=== PATIENT | female | born 1990 | race Caucasian/White ===

== ENCOUNTER → 2020-12-19 10:38 | Outpatient (CLI) | payer OTHER, SELFPAY ==
[2014-06-06 19:23] VITALS: BMI 19.8
[2020-12-19 12:26] LABS: Hematocrit 41.4 % (37-47); Hemoglobin 14.1 g/dL (12.0-15.0); Mean Corp Hgb Conc 34.1 g/dL (32-36); Mean Corpuscular Hgb 30.5 pg (27.0-32.0); Mean Corpuscular Volume 89.6 fL (81-99); Mean Platelet Vol. 10.6 fl (6.2-12.0); Platelet Count 242 K/mm3 (150-450); RBC Distribution Width CV 11.9 % (11.6-14.6); RBC Distribution Width SD 38.9 fl (35.1-43.9); Red Blood Count 4.62 M/mm3 (4.2-5.4); White Blood Count 6.2 K/mm3 (4.4-11.0)
[2020-12-19 12:59] LABS: Vitamin B12 338 pg/mL (211-911)
[2020-12-19 13:00] LABS: ALB/GLOB Ratio 1.3 RATIO (0.9-2.4); AST(SGOT) 17 U/L (15-37); Alanine Aminotransfer ALT/SGPT 21 U/L (13-56); Albumin, Serum 4.4 g/dL (3.2-5.0); Alkaline Phosphatase 61 U/L (45-117); Anion Gap 6 (5-15); BUN 8 mg/dL (7-18); BUN/Creat Ratio 9.5 RATIO (10-20); Calcium,Total 9.6 mg/dL (8.5-10.1); Chloride 104 mmol/L (98-107); Creatinine, Serum 0.85 mg/dL (0.55-1.02); EST Glomerular Filtration Rate 85 mL/min (>60); Est Glom Filt Rate - Afr Amer 103 mL/min (>60); Globulin 3.5 g/dL (2.2-4.2); Glucose 90 mg/dL (74-106); Potassium 4.3 mmol/L (3.5-5.1); Protein, Total 7.9 g/dL (6.4-8.2); Sodium Level 138 mmol/L (136-145)
== END ==
PROVIDERS: PCP Family Medicine; Referring Provider Podiatrist Foot & Ankle Surgery; Visit Provider Podiatrist Foot & Ankle Surgery
DX: G60.8 Other hereditary and idiopathic neuropathies (principal)
CPT/HCPCS: 36415; 80053; 82607; 85027

== ENCOUNTER 2021-11-12 17:00 | Outpatient (RCR) | payer OTHER, SELFPAY ==
--- NOTE | 2021-10-22 17:13 | HP.PTEVAL ---
Patient's Visit Information MARIE MCKEON is a 30 year old F referred to Physical Therapy by Dr. Anika Barron MD with a diagnosis of - Saccro. Date of Evaluation: 10/22/21 Physical Therapist: Jennifer Castro DPT - Visit Plan Frequency: 2x /Week Duration: 4 Weeks Plan: - hip pain- focus on core s/s. HEP Given IE: Cat/Camel, Happy Baby, Child's pose, Tailwag, TA contraction, bridge, hip add, hip abd - Subjective Patient reports that she is - and has pain in the tailbone and is radiating out to the hip. Started when she was moving but is now aching all day. She is 14 weeks - it started as soon as she got . This is her first baby. The pain is located on the right side. She has never had back issues before. Describes the pain as sharp and shooting and aches too. She has looked up some stretches online and she ices- so its gotten a little bit better- she does cat/cow, frog stretch, wagging her tail. Worst: 3/10 Agg: twisting while bending, bending, sitting and standing, rolling over in bed. Ease: ice, stretches. Best: 0/10. No pain that radiates down her leg and no N/T in the toes. 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 She finds herself wanting to sit more. No images or ultrasounds on her spine. The nurse does not feel that its from her - possibly from a dog pulling her when walking. She also has Hao disease. No complications during . Sleep: does wake her up- sleeps mostly on her back- she has a big pillow that she uses and it helps to keep her knees . She is more sedentary- she tries to walk but the weather has been crazy- no weight training or core exercises. PMHx: Hao Disease, Bipolar, Scoliosis Meds: Latuda - Objective Posture: Fh, RS can correct but does not maintain. Gait: no deviation noted. SLS: 30 sec without LOB good pelvic alignment- no sway. ROM: WFL in all planes no pain. Flex: HS: moderated, Gastroc: moderate, Quad: moderate. Strength: Core: fair minus, Hip: 4/5 IR/ER, Flexion, abduction and extension. 4+/5 adduction, Knee/Ankle: 5/5. Special Test: pelvic alignment: WFL, LLD: negative, Squish: negative, Prone Heel Squeeze: negative - Special Tests L/S Slump test left side: Negative L/S Slump test right side: Negative L/S Left Straight Leg Raise: Negative L/S Right Straight Leg Raise: Negative R Hip Scour: Negative R Hip HIRA - Intraarticular Pathology: Negative R Hip FADDIR - Labrum: Negative R Hip Trendelenberg - Glut Medius: Negative - Balance/Special Test Scores Oswestry Low Back Score: 4 - Goals Goal 1:: Patient will be I with HEP and progression Goal Time Frame: 4-6 Weeks Goal 2:: Patient will maintain proper posture t/o tx session to demo increased core s/s Goal Time Frame: 4-6 Weeks Goal 3:: Patient will report 80% improvement Goal Time Frame: 4-6 Weeks - Rehabilitation Potential Physical Therapy Diagnosis: Patient presents with hypomobility- she has decreased LE and core strength/stabilization, flex and muscular endurance leading to poor posture and increased pain with ADL's Rehabilitation Potential: Good - Anticipated Interventions Patient/Client Instruction: Educate patient on: Benefits of Fitness Program Therapeutic Exercise to Include: Strength training, Endurance training, Balance training, Coordination, Agility training, Body mechanics, Postural training, Flexibilty training, Gait and locomotor training, Neuromotor development, Dynamic Lumbar Stabilization, Scapular Strength/Stabilization For the Purpose of:: To improve muscle performance and motor function TENS: No Cryotherapy (ice pack, ice massage): Yes Thermo therapy (hot pack): No Ultrasound (thermal/non thermal): No Thank you for the opportunity to evaluate your patient. For Medicare and Medicare HMO plans, please review the plan of care and approve it. It will need to be FAXED BACK to us at [phone] for Medicare purposes. For Medicare only, by signing this I certify the plan of care. Please let me know if there are questions or concerns regarding this plan of care. Physician Signature: Date:
--- NOTE | 2021-11-12 17:27 | HP.PTDCSUM ---
It has been my pleasure to treat MARIE MCKEON referred by Dr. Anika Barron MD, with the diagnosis of - Saccro/Right Hip for a total of 6 visit(s). Discharge Date: Please see the following information for a summary of their discharge status. Subjective: Patient reports that occasionally she is having a little bit of discomfort- right hip- ice still helps. The pain only happens when she is really busy- if she is sitting or standing in one spot for long periods of time. % Improvement: 95 Objective/Function: Posture: good throughout Gait: no deviation noted. SLS: 30 sec without LOB good pelvic alignment- no sway. ROM: WFL in all planes no pain. Flex: HS: moderated, Gastroc: moderate, Quad: moderate. Strength: Core: fair, Hip: 4+/5 IR/ER, Flexion, abduction and extension. 4+/5 adduction, Knee/Ankle: 5/5. Special Test: pelvic alignment: WFL, LLD: negative, Squish: negative, Prone Heel Squeeze: negative Goal 1:: Patient will be I with HEP and progression Goal Progress: Goal Met Goal 2:: Patient will maintain proper posture t/o tx session to demo increased core s/s Goal Progress: Goal Met Goal 3:: Patient will report 80% improvement Goal Progress: Goal Met Plan: Discharge- continue HEP given print out of previous exercises and BTB, GTB and PTB If there are questions or concerns regarding this patient's physical therapy, please feel free to call me at [phone]. Thank you for the referral of this patient. Sincerely, Jennifer Castro, DPT Balance/Gait/Functional tests - Balance/Special Test Scores Oswestry Low Back Score: 0
== END 2021-11-12 19:00 | disposition home or self-care (01) ==
LOC: PT 17:00
PROVIDERS: PCP Family Medicine; Referring Provider Obstetrics & Gynecology; Visit Provider Obstetrics & Gynecology
DX: O99.891 Other specified diseases and conditions complicating pregnancy (principal); M53.3 Sacrococcygeal disorders, not elsewhere classified; Z3A.00 Weeks of gestation of pregnancy not specified
CPT/HCPCS: 97110; 97161; 97164

== ENCOUNTER 2022-01-17 13:07 | Outpatient (CLI) | payer OTHER, SELFPAY ==
[2022-01-17 14:01] VITALS: BP 113/61; PULSE 69
[2022-01-17 14:03] VITALS: BMI 30.4
[2022-01-17 14:10] VITALS: TEMP 37.4
--- NOTE | 2022-01-27 16:04 | OB.TRI.PN ---
Progress Notes Progress Note: at 27w1d presents with complaint of decreased movement and cramping earlier in the day. No leakage of fluid or bleeding. O:NST reactive Assessment & Plan (1) Decreased movement: PLAN: Plan 1) FKCs reviewed 2) D/C home and follow up in office
== END 2022-01-17 14:30 | disposition home or self-care (01) ==
LOC: WPOUT 13:13 → WP 13:13
PROVIDERS: PCP Family Medicine; Visit Provider Advanced Practice Midwife
DX: O36.8120 Decreased fetal movements, second trimester, not applicable or unspecified (principal); Z3A.27 27 weeks gestation of pregnancy
CPT/HCPCS: 59050; 99218; G0378

== ENCOUNTER 2022-04-02 16:00 | Outpatient (CLI) | payer OTHER, SELFPAY ==
[2022-04-02 16:10] VITALS: BMI 34.0
[2022-04-02 16:24] VITALS: BP 124/74; PULSE 79; TEMP 36.6
[2022-04-02 16:52] LABS: ROM Internal Control Test YES-OK TO RESULT pt. (Internal QC); ROM Patient Test Negative (Negative)
--- NOTE | 2022-04-04 10:31 | OB.TRI.PN ---
Progress Notes Progress Note: 31 year old female Presented to labor and delivery at 37w6d for possible ROM. Denies any regular contractions or vaginal bleeding. Good movement. O: NST 135, moderate variability, accels, no decels, Category 1, reactive ROM Plus negative Laboratory Studies: Laboratory Tests 04/02/22 Range/Units 16:15 Vag Amniotic Fld Detect Negative (Negative) Assessment & Plan (1) Vaginal discharge: PLAN: Plan 1) Vaginal discharge, no signs of labor. ROM plus negative 2) D/C home and keep appointment with [facility] as scheduled.
== END 2022-04-02 17:19 | disposition home or self-care (01) ==
LOC: WPOUT 16:04 → WP 16:04
PROVIDERS: PCP Family Medicine; Visit Provider Advanced Practice Midwife
DX: O26.893 Other specified pregnancy related conditions, third trimester (principal); N89.8 Other specified noninflammatory disorders of vagina; Z3A.37 37 weeks gestation of pregnancy
CPT/HCPCS: 59025; 59050; 84112; 99218; G0378

== ENCOUNTER 2022-04-24 14:25 | Outpatient (CLI) | payer OTHER, SELFPAY ==
[2022-04-24 14:32] VITALS: BMI 34.2
[2022-04-24 14:42] VITALS: BP 128/75; PULSE 68
[2022-04-24 15:00] VITALS: TEMP 36.5
[2022-04-24 17:13] LABS: Probe Check PASS; Specimen Processing Control PASS
--- NOTE | 2022-04-29 12:26 | OB.TRI.NOTE ---
HPI - General General Date of Service: 04/24/22 HPI Narrative MARIE MCKEON, is a 31 F who presents for an NST. 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 Home Medications levothyroxine 50 mcg tablet 50 mcg PO DAILY hypothyroid 01/17/22 [History Last Taken 04/25/22 06:00] lurasidone 60 mg tablet (Latuda) 60 mg PO QPM bipolar 01/17/22 [History Last Taken 04/24/22 22:00] vits,calcium no.78-iron fumarate-folic acid 29 mg-1 mg tablet (Prenatabs FA) 1 tab PO DAILY 01/17/22 [History Last Taken 04/24/22 11:00] Allergy/AdvReac Type Severity Reaction Status Date / Time No Known Allergies Allergy Verified 04/24/22 16:26 Family History Other Thyroid disorder Surgical History [place] teeth removed Social History Smoking Status: Never smoker History Elective abortions Hx Para 0 Spontaneous abortions Hx # Term Pregnancies Ectopic pregnancies Hx # Pregnancies Multiple births # of living children Assessment & Plan (1) Post-dates : QUALIFIERS: Post-term type: 40-42 weeks gestation Qualified Code(s): O48.0 - Post-term COMMENT: 41 PLAN: Reactive NST
== END 2022-04-24 16:00 | disposition home or self-care (01) ==
LOC: WPOUT 14:31 → WP 14:31
PROVIDERS: PCP Family Medicine; Visit Provider Obstetrics & Gynecology
DX: O48.0 Post-term pregnancy (principal); O09.10 Supervision of pregnancy with history of ectopic pregnancy, unspecified trimester; Z3A.41 41 weeks gestation of pregnancy
CPT/HCPCS: 59025; 59050; 87635; U0003; U0005

== ENCOUNTER 2022-04-25 06:58 | Inpatient (IN) | payer OTHER, SELFPAY ==
[2022-04-25] VITALS (25 sets, daily range): BP systolic 97–143; BP diastolic 52–90; PULSE 51–137; RESP 16–20; TEMP 36–37; O2SAT 80–100; BMI 34.1
[2022-04-25 08:23] LABS: Absolute Lymphocyte Count 1.59 X10^3/uL (0.83-4.51); Absolute Neutrophil Count 8.1 X10^3/uL (2.0-7.7); Basophil# 0.04 X10^3/uL; Basophil% 0.4 % (0-1); Eosinophil# 0.15 X10^3/uL; Eosinophils% 1.4 % (0-5); Hemoglobin 12.3 g/dL (12.0-15.0); Lymphocyte # 1.59 X10^3/ul (0.83-4.51); Lymphocyte % 14.9 % (19-41); Mean Corp Hgb Conc 35.1 g/dL (32-36); Mean Corpuscular Hgb 31.7 pg (27.0-32.0); Mean Corpuscular Volume 90.2 fL (81-99); Mean Platelet Vol. 10.3 fl (6.2-12.0); Monocyte# 0.62 X10^3/uL; Monocyte% 5.8 % (0-10); NRBC Flagged by Analyzer 0 % (0-5); Neutrophil # 8.14 X10^3/uL (2.7-7.7); Platelet Count 239 K/mm3 (150-450); RBC Distribution Width CV 13.9 % (11.6-14.6); RBC Distribution Width SD 45.1 fl (35.1-43.9); Red Blood Count 3.88 M/mm3 (4.2-5.4); White Blood Count 10.7 K/mm3 (4.4-11.0)
[2022-04-25] MEDS: 0.9% Saline Lock 10 ML Syringe IV ×2 (08:46→13:10)
[2022-04-25] MEDS: miSOPROStol 25 MCG TABLET VAGINAL (08:46)
[2022-04-25] MEDS: LACTATED RINGERS 500 ML 999 ML IV (13:10)
[2022-04-25] MEDS: 0.9% Normal Saline Single 100 ML IV.SOLN. INTRA-UTER (13:36)
[2022-04-25] MEDS: Lactated Ringers 1,000 ML 50 ML IV (13:40)
--- NOTE | 2022-04-25 13:52 | HP.PCM.OB_ITS ---
HPI - General General Date of Admission: 04/25/22 Date of Service: 04/25/22 HPI Narrative MARIE MCKEON, is a 31 F who presents for induction. 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 Home Medications levothyroxine 50 mcg tablet 50 mcg PO DAILY hypothyroid 01/17/22 [History Last Taken 04/25/22 06:00] lurasidone 60 mg tablet (Latuda) 60 mg PO QPM bipolar 01/17/22 [History Last Taken 04/24/22 22:00] vits,calcium no.78-iron fumarate-folic acid 29 mg-1 mg tablet (Prenatabs FA) 1 tab PO DAILY 01/17/22 [History Last Taken 04/24/22 11:00] Allergy/AdvReac Type Severity Reaction Status Date / Time No Known Allergies Allergy Verified 04/24/22 16:26 Family History Other Thyroid disorder Surgical History [place] teeth removed Social History Smoking Status: Never smoker History Elective abortions Hx Para 0 Spontaneous abortions Hx # Term Pregnancies Ectopic pregnancies Hx # Pregnancies Multiple births # of living children NST FHR Rate Baby A Baseline: 125 Variability:: Moderate Accelerations:: 15 x 15 Decelerations:: Variable Uterine Activity:: Q 2 minutes at times Vital Signs Vital Signs Vital Signs: 04/25/22 07:48 04/25/22 07:48 04/25/22 07:48 Temperature Temperature Source Pulse Rate 77 74 Blood Pressure 134/90 H BP Systolic 134 BP Diastolic 90 Pulse Ox 04/25/22 07:48 04/25/22 07:48 04/25/22 07:48 Temperature Temperature Source Temporal Pulse Rate Blood Pressure BP Systolic BP Diastolic Pulse Ox 98 98 04/25/22 07:48 04/25/22 10:23 04/25/22 10:23 Temperature 97.6 F L Temperature Source Pulse Rate 58 L Blood Pressure 128/81 H BP Systolic 128 BP Diastolic 81 Pulse Ox 04/25/22 10:23 04/25/22 10:23 04/25/22 10:23 Temperature 97.6 F L Temperature Source Temporal Pulse Rate Blood Pressure BP Systolic BP Diastolic Pulse Ox 99 04/25/22 10:40 04/25/22 10:40 04/25/22 12:14 Temperature Temperature Source Pulse Rate 51 L Blood Pressure 119/72 BP Systolic 119 BP Diastolic 72 Pulse Ox 99 04/25/22 12:14 04/25/22 12:13 04/25/22 12:13 Temperature Temperature Source Temporal Pulse Rate 71 Blood Pressure BP Systolic BP Diastolic Pulse Ox 98 04/25/22 12:13 04/25/22 13:17 04/25/22 13:17 Temperature 97.7 F L Temperature Source Pulse Rate 63 Blood Pressure 129/83 H BP Systolic 129 BP Diastolic 83 Pulse Ox 04/25/22 13:17 04/25/22 13:17 04/25/22 13:40 Temperature 97.8 F Temperature Source Temporal Pulse Rate 65 Blood Pressure BP Systolic BP Diastolic Pulse Ox 04/25/22 13:40 04/25/22 13:45 04/25/22 13:45 Temperature Temperature Source Pulse Rate 62 Blood Pressure BP Systolic BP Diastolic Pulse Ox 98 99 Weight Weight: 217 lb 13.067 oz Body Mass Index (BMI) 34.1 Physical Exam Const alert and oriented x3 Chest inspection of chest normal Resp normal respiratory effort GI soft to palpation, non-tender and non-distended Inspection: gravid external exam normal Narrative: cvx - 1.5/70/-1, intracervical odell placed Extremity no calf tenderness Labs Labs Labs: Blood Type O POSITIVE Antibody Screen NEGATIVE Hct 35.0 % (37-47) L Hgb 12.3 g/dL (12.0-15.0) See [facility] H&P Assessment & Plan (1) Post-dates : QUALIFIERS: Post-term type: 40-42 weeks gestation Qualified Code(s): O48.0 - Post-term COMMENT: 41&1 PLAN: Admit to L&D Continue induction - s/p cytotec & now with intracervical odell GBS negative COVID negative Pain - nitrous gas and epidural as desired EFW - less than 4500g, patient with adequate pelvis Routine care
[2022-04-25] MEDS: miSOPROStol 200 MCG Tablet 1000 MCG INTRA-UTER (17:06)
[2022-04-25] MEDS: Cefazolin 2 GM in 0.9% Normal Saline 100 ML IV (17:11)
--- NOTE | 2022-04-25 17:46 | OP.PCM_ITS ---
Maternal Data Information Final KAVEH: 04/17/22 Gestational age: 41&1 Details Operative Information Date of Procedure: 04/25/22 Pre-Operative Diagnosis: (1) Non reassuring heart tracing (2) Umbilical cord prolapse Post-Operative Diagnosis: Same Indications for : Distress and Prolapsed Cord Indications Narrative: The patient was taken to the operating room where she was quickly prepped and draped in the dorsal supine position with a left lateral tilt. General anesthesia was placed. A Pfannenstiel skin incision was made approximately 2 cm above the symphysis pubis and carried through to the underlying fascia with the scalpel. The fascia was incised incised in the midline and extended laterally. The rectus muscles were in the midline and the peritoneum was entered carefully and bluntly. The peritoneal incision was stretched and the bladder blade was inserted. The uterine incision was made in a low transverse fashion with the scalpel and extended superiorly and inferiorly with blunt dissection. The infant's head was brought to the incision in the flexed position and delivered without difficulty. The head was gently guided to allow delivery of the anterior and posterior shoulders. The body then delivered with fundal pressure in the standard fashion. The 3VC cord was clamped and cut in delayed fashion. The was handed off to the waiting pediatric critical care nurse. The placenta was delivered with fundal massage and gentle traction in the standard fashion. The uterus was exteriorized and cleared of clots and debris. The uterine incision was closed with #1 Vicryl suture in a running locked fashion. Monocryl suture was used in an imbricating fashion. The incision was examined and was found to be hemostatic. The uterus was returned to the abdominal cavity. After irrigating Damaris was placed over the uterine incision as some areas were denuded (but hemostatic). The peritoneum was closed with vicryl suture in running fashion The rectus muscle was examined and any bleeding was Bovie cauterized. The fascia was closed with PDS suture in a running standard fashion. The subcutaneous tissue was examining and any bleeding was Bovie cauterized. The subcutaneous tissue was reapproximated with interrupted sutures. The skin was closed in a subcuticular fashion by the SOFTWARE SYSTEMS ANALYST while I was present in the labor & delivery unit. The remainder of the procedure was performed by me with assistance. All sponge, lap, and needle counts were correct. The patient was taken to her room for recovery in a stable condition. Classification: Stat Procedure Type: low transverse movie critic #1: Margi Flores Type of Anesthesia: General Special Medications: intrauterine cytotec 1,000mcg Antibiotic Given: Ancef 2 grams IV x1 and Zithromax 500 mg/5 mL X1 Drain: [place] to straight drain Estimated Blood Loss: 1,000ml Fluids Replaced: 800ml Procedure Start Time: 16:59 Procedure Stop Time: 17:45 Findings Description of Procedure: Normal maternal uterus and adnexa Presentation: Positive for Vertex Amniotic Membrane Rupture Type: Spontaneous Amniotic Fluid Description: Clear Placental Delivery Description: Manual Removal Placenta Disposition: [facility] Specimen(s) Sent to Pathology: None Cord Vessel Description: 3 Vessels Cord Entanglement: None Cord Gases: ABG and VBG A Gender: Female (1 minute): 8 (5 minute): 9 Delayed Cord Clamping: Yes Complications Complications: None
[2022-04-25] MEDS: Ketorolac 30 MG/ML Syringe IV (18:07)
[2022-04-25] MEDS: Oxytocin 15 Units/NS 250ml 15 UNITS/250 ML IV.SOLN 83 UNITS IV (18:15)
[2022-04-25] MEDS: Acetaminophen 500 MG Tablet 1000 MG PO (19:20)
[2022-04-25] MEDS: Lactated Ringers 1,000 ML 100 ML IV (21:15)
[2022-04-26] VITALS (9 sets, daily range): BP systolic 121–143; BP diastolic 63–78; PULSE 78–101; RESP 16–18; TEMP 36.6–37; O2SAT 96–100
[2022-04-26] MEDS: Ketorolac 30 MG/ML Syringe IV ×3 (00:35→12:30)
[2022-04-26] MEDS: Acetaminophen 500 MG Tablet 1000 MG PO ×4 (01:55→20:43)
[2022-04-26] MEDS: Levothyroxine 50 MCG Tablet PO (06:17)
[2022-04-26] MEDS: Enoxaparin 40 MG/0.4 ML Syringe SC (06:17)
[2022-04-26 06:46] LABS: Hematocrit 24.9 % (37-47); Hemoglobin 8.8 g/dL (12.0-15.0); Mean Corp Hgb Conc 35.3 g/dL (32-36); Mean Corpuscular Hgb 31.9 pg (27.0-32.0); Mean Corpuscular Volume 90.2 fL (81-99); Mean Platelet Vol. 10.4 fl (6.2-12.0); Platelet Count 238 K/mm3 (150-450); RBC Distribution Width CV 14.2 % (11.6-14.6); RBC Distribution Width SD 45.4 fl (35.1-43.9); Red Blood Count 2.76 M/mm3 (4.2-5.4); White Blood Count 17.6 K/mm3 (4.4-11.0)
--- NOTE | 2022-04-26 08:33 | PCM.PN.OB ---
Subjective Subjective Postoperative day #1 . Doing well per patient and nursing staff. Ambulating and taking PO without difficulty. Voiding and passing flatus. Pain controlled. , services for assistance. Denies headache, visual changes, chest pain, shortness of breath, leg pain or increased bleeding. Lochia normal. Objective Data Objective Data Vital Signs: Vital Signs Temp Pulse Resp BP Pulse Ox O2 Del Method 987.7 F H 101 H 16 121/75 H 97 Room Air 04/26/22 07:31 04/26/22 07:31 04/26/22 07:31 04/26/22 07:31 04/26/22 07:38 04/26/22 07:38 Oxygen Delivery Method Room Air Weight: 217 lb 13.067 oz Body Mass Index (BMI) 34.1 Intake & Output: Intake and Output for Last 24 Hours 04/24/22 04/25/22 04/26/22 23:59 23:59 23:59 Intake Total 2089 / 2089 941.67 / 941.67 Output Total 1200 / 1200 1500 / 1500 Balance 889 / 889 -558.33 / -558.33 Lab / Micro Data Result Diagrams: 04/26/22 06:22 Labs: Laboratory Results - last 24 hr 04/25/22 07:50: Blood Type O POSITIVE, Antibody Screen NEGATIVE 04/26/22 06:22: WBC 17.6 H, RBC 2.76 L, Hgb 8.8 L, Hct 24.9 L, MCV 90.2, MCH 31.9, MCHC 35.3, RDW Std Deviation 45.4 H, RDW Coeff of Sami 14.2, Plt Count 238, MPV 10.4 Micro: Microbiology 04/25/22 08:00 Nasal Secretion SARS-CoV-2 Antigen (Rapid) - Final Physical Exam Const alert and oriented x3 General Appearance: cooperative Orientation / Consciousness: awake, oriented to person, oriented to place and oriented to time Exam Limitations: no limitations HEENT normocephalic Head and Scalp: normal to inspection, normocephalic and atraumatic Face and Sinus: normal facial exam Eyes General Eye: normal appearance of both eyes Neck full ROM Chest Chest: symmetrical chest wall rise Resp normal respiratory effort and normal air movement Auscultation: clear to auscultation bilaterally Cardio regular rate, regular rhythm, S1 normal heart sound, S2 normal heart sound, no murmurs, no rub, no gallops and no clicks GI normal to inspection, nondistended, normoactive bowel sounds and non-tender GI Narrative: dressing dry and intact no CVA tenderness Narrative: lochia rubra, small amount Bladder / Kidney Exam: no CVA tenderness Back/Spine normal ROM Extremity normal to inspection and full ROM Extremity Narrative: no edema. Cedric's negative bilaterally Skin no rashes or lesions noted Neuro oriented x3, CN's II-XII intact bilaterally and moves all extremities Sensorium / Orientation: awake, alert and oriented to person Motor Exam: clonus absent Deep Tendon Reflexes: Rt Patellar (L4): 2+ and Lt Patellar (L4): 2+ Assessment & Plan (1) Post-dates : QUALIFIERS: Post-term type: 40-42 weeks gestation Qualified Code(s): O48.0 - Post-term COMMENT: 41&1 (2) Bipolar 1 disorder: COMMENT: Pt hospitalized twice - last in 2018 - sees Dr. 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 Will start iron 3) I&Os 4) Vitals stable 5) Pain management 6) Planning D/C home tomorrow
[2022-04-26] MEDS: Senna/Docusate Sodium 1 Tablet PO (10:40)
[2022-04-26] MEDS: 0.9% Saline Lock 10 ML Syringe IV (12:30)
[2022-04-26] MEDS: Ferrous Sulfate 325 MG Tablet PO (13:51)
--- NOTE | 2022-04-26 16:25 | CASEMGMT ---
Social Work Labor and Delivery Consult received for maternal history of Bipolar disorder. Records reviewed. Will plan to see patient/mother of baby for assessment on 04.27.2022. -JOIE Gallegos, PATIENT SAFETY COORDINATOR
[2022-04-26] MEDS: Ibuprofen 600 MG Tablet PO (18:40)
[2022-04-26] MEDS: LURASIDONE HCL 60 MG TABLET PO (20:44)
[2022-04-27] MEDS: Ibuprofen 600 MG Tablet PO ×5 (00:10→23:31)
[2022-04-27] MEDS: Acetaminophen 500 MG Tablet 1000 MG PO ×3 (02:04→20:30)
[2022-04-27 02:41] VITALS: BP 135/70; PULSE 81; RESP 18; TEMP 36.4; O2SAT 96
[2022-04-27] MEDS: Enoxaparin 40 MG/0.4 ML Syringe SC (06:04)
[2022-04-27] MEDS: Levothyroxine 50 MCG Tablet PO (06:41)
[2022-04-27 07:43] VITALS: BP 125/70; PULSE 102; RESP 16; TEMP 36.3; O2SAT 96
--- NOTE | 2022-04-27 09:01 | PN.OBGYN_ITS ---
Subjective Subjective Pain controlled Objective Data Objective Data Vital Signs: Vital Signs Temp Pulse Resp BP Pulse Ox O2 Del Method 97.3 F L 102 H 16 125/70 H 96 Room Air 04/27/22 07:43 04/27/22 07:43 04/27/22 07:43 04/27/22 07:43 04/27/22 07:43 04/27/22 07:43 Oxygen Delivery Method Room Air Weight: 217 lb 13.067 oz Body Mass Index (BMI) 34.1 Intake & Output: Intake and Output for Last 24 Hours 04/25/22 04/26/22 04/27/22 23:59 23:59 23:59 Intake Total 2089 / 2089 941.67 / 941.67 Output Total 1200 / 1200 2400 / 2400 Balance 889 / 889 -1458.33 / -1458.33 Lab / Micro Data Result Diagrams: 04/26/22 06:22 Micro: Microbiology 04/25/22 08:00 Nasal Secretion SARS-CoV-2 Antigen (Rapid) - Final Physical Exam Const alert, oriented x3 and no apparent distress HEENT normocephalic GI soft to palpation, non-tender and non-distended GI Narrative: fundus firm, mid & below umbilicus Incision - bandage c/d/i Extremity normal to inspection and no calf tenderness Assessment & Plan (1) Delivery by section: COMMENT: POD#2 PLAN: Heme - continue iron for anemia Routine PP care Likely d/c home tomorrow (2) Bipolar 1 disorder: COMMENT: Pt hospitalized twice - last in 2018 - sees Dr. 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
[2022-04-27 12:00] VITALS: BP 113/65; PULSE 86; RESP 16; TEMP 36.7; O2SAT 100
[2022-04-27] MEDS: Senna/Docusate Sodium 1 Tablet PO (12:59)
[2022-04-27] MEDS: Ferrous Sulfate 325 MG Tablet PO ×2 (12:59→13:01)
[2022-04-27 18:00] VITALS: BP 129/83; PULSE 88; RESP 16; TEMP 36.6; O2SAT 99
--- NOTE | 2022-04-27 18:43 | CASEMGMT ---
Social Work Labor and Delivery Due to timing issues, unable to meet with MOB today. MOB not yet for discharge. Intend to see MOB in the morning hours of 04.28.2022. -JOIE Gallegos, [employer] COMMERCE CONSULTANT
[2022-04-27] MEDS: LURASIDONE HCL 60 MG TABLET PO (19:43)
[2022-04-27 20:32] VITALS: BP 115/69; PULSE 85; RESP 16; TEMP 36.8; O2SAT 98
[2022-04-28] MEDS: Acetaminophen 500 MG Tablet 1000 MG PO ×2 (02:48→08:42)
[2022-04-28 02:50] VITALS: BP 120/84; PULSE 84; RESP 16; TEMP 36.7; O2SAT 97
[2022-04-28] MEDS: Levothyroxine 50 MCG Tablet PO (06:34)
[2022-04-28] MEDS: Enoxaparin 40 MG/0.4 ML Syringe SC (06:35)
[2022-04-28] MEDS: Ibuprofen 600 MG Tablet PO (07:04)
[2022-04-28 07:53] VITALS: BP 136/60; PULSE 80; RESP 18; TEMP 36.4; O2SAT 99
--- NOTE | 2022-04-28 08:22 | PCM.DC.SUM ---
Providers Date of Admission: 04/25/22 Primary Care Physician: Dr. 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 Hospital course was uneventful. Physical Exam Narrative Patient seen at bedside. Feeling good. Ambulating and voiding without difficulty. Passing flatus and had a bowel movement yesterday. Pain controlled with Tylenol and Motrin PO. Denies headache, dizziness, SOB or CP. Desires discharge home today. Const alert and no apparent distress General Appearance: cooperative and comfortable Exam Limitations: no limitations HEENT normocephalic Eyes General Eye: normal appearance of both eyes Neck full ROM General: normal visual inspection Chest Chest: symmetrical chest wall rise Resp normal respiratory effort and normal air movement Effort and Inspection: symmetric chest movement Auscultation: clear to auscultation bilaterally Cardio regular rate and regular rhythm GI normal to inspection, nondistended, normoactive bowel sounds Back/Spine normal ROM Extremity full ROM and no calf tenderness General Extremity: normal exam except as noted Skin no rashes or lesions noted Neuro CN's II-XII intact bilaterally Psych mental status grossly normal Weight / BMI Weight Weight: 217 lb 13.067 oz Body Mass Index (BMI) 34.1 ABG / Lab / Microbiology Data Result Diagrams: 04/26/22 06:22 Microbiology: Microbiology 04/25/22 08:00 Nasal Secretion SARS-CoV-2 Antigen (Rapid) - Final D/C Instructions Discharge Diet: No restrictions Discharge Activity: Return to Normal Activity and May Shower May resume sexual activity in: 6-8 weeks Weight Bearing Status: Weight bearing as tolerated Lifting Restrictions: 25 lbs Call your doctor if your incision/area has: Continuous Slow Oozing, Sudden Increased Bleeding, Increased Pain/ Swelling, Increased Redness, Foul Smelling Discharge and Swelling at the incision site Call your doctor if you observe: Fever of 101 or Higher, Inability to urinate, Using more than 1 pad per hour, Shortness of breath, Dizziness, Chest pain, Calf discomfort and Uncontrolled pain Remove Dressing in: 1 week Cleanse incision/area with: Soap & Water and Keep Dressing Clean & Dry Please Follow Up With: Denilson Sung MD When: 1-2 weeks in office Meaningful Use Info Meaningful Use Diagnoses (Choose all that apply): None applicable Discharge Plan Admission Admit Date/Time: 04/25/22 06:58 Primary Reason for Your Visit: Labor and delivery Attending Provider: Denilson Sung Primary Care Provider: Shayy Ricks Discharge Orders/Prescriptions Prescriptions: No Action levothyroxine 50 mcg Tablet 50 mcg PO DAILY Prenatabs FA 29-1 mg Tablet 1 tab PO DAILY Latuda 60 mg Tablet 60 mg PO QPM Rx Instructions: must administer with food (at least 350 calories) Referrals / Follow Up: Shayy Ricks MD [Primary Care Provider] - Disposition Disposition (needs filled in before D/C Order can be placed): Home, Self Care
[2022-04-28] MEDS: Ferrous Sulfate 325 MG Tablet PO (10:23)
[2022-04-28] MEDS: Senna/Docusate Sodium 1 Tablet PO (10:23)
[2022-04-28 11:50] VITALS: BP 133/88
== END 2022-04-28 11:55 | disposition home or self-care (01) | DRG 788 ==
PROVIDERS: Admitting Provider Obstetrics & Gynecology; PCP Family Medicine; Visit Provider Obstetrics & Gynecology
DX: O76 Abnormality in fetal heart rate and rhythm complicating labor and delivery (principal); E03.9 Hypothyroidism, unspecified; F31.9 Bipolar disorder, unspecified; E06.3 Autoimmune thyroiditis; O48.0 Post-term pregnancy; O99.344 Other mental disorders complicating childbirth; O99.284 Endocrine, nutritional and metabolic diseases complicating childbirth; Z37.0 Single live birth; Z3A.41 41 weeks gestation of pregnancy
CPT/HCPCS: 59025; 59050; 85025; 85027; 86850; 86900; 86901; 87426; 99218; J7120; A4216; G0378; J2405

== ENCOUNTER → 2022-06-09 | Outpatient (CLI) | payer OTHER, SELFPAY ==
[2022-06-09 16:15] LABS: Thyroid Stim Hormone (TSH) 0.83 uIU/mL (0.358-3.74)
== END | disposition home or self-care (01) ==
LOC: MTLAB 12:32
PROVIDERS: PCP Family Medicine; Referring Provider Family Medicine; Visit Provider Family Medicine
DX: E03.9 Hypothyroidism, unspecified (principal)
CPT/HCPCS: 36415; 84443

== ENCOUNTER → 2022-07-16 | Outpatient (CLI) | payer OTHER, SELFPAY | END | disposition home or self-care (01) | LOC: MFPLAB 14:03 | PROVIDERS: PCP Family Medicine; Referring Provider Family Medicine; Visit Provider Family Medicine | DX: E03.9 Hypothyroidism, unspecified (principal) | CPT/HCPCS: 36415 ==

== ENCOUNTER → 2022-08-17 | Outpatient (CLI) | payer OTHER, SELFPAY | END | disposition home or self-care (01) | LOC: MTLAB 08:50 | PROVIDERS: PCP Family Medicine; Referring Provider Family Medicine; Visit Provider Family Medicine | DX: E03.9 Hypothyroidism, unspecified (principal) | CPT/HCPCS: 36415; 84443 ==

== ENCOUNTER → 2022-09-14 | Outpatient (CLI) | payer OTHER, SELFPAY ==
[2022-09-14 18:03] LABS: Hematocrit 41.9 % (37-47); Hemoglobin 13.9 g/dL (12.0-15.0); Mean Corp Hgb Conc 33.2 g/dL (32-36); Mean Corpuscular Hgb 28.6 pg (27.0-32.0); Mean Corpuscular Volume 86.2 fL (81-99); Mean Platelet Vol. 10.1 fl (6.2-12.0); Platelet Count 315 K/mm3 (150-450); RBC Distribution Width CV 13.3 % (11.6-14.6); RBC Distribution Width SD 41.7 fl (35.1-43.9); Red Blood Count 4.86 M/mm3 (4.2-5.4); White Blood Count 8.4 K/mm3 (4.4-11.0)
[2022-09-14 20:21] LABS: Anion Gap 6 (5-15); BUN 12 mg/dL (7-18); BUN/Creat Ratio 9.1 RATIO (10-20); Calcium,Total 9.4 mg/dL (8.5-10.1); Chloride 102 mmol/L (98-107); Creatinine, Serum 1.32 mg/dL (0.55-1.02); EST Glomerular Filtration Rate 50 mL/min (>60); Est Glom Filt Rate - Afr Amer 61 mL/min (>60); Glucose 90 mg/dL (74-106); Sodium Level 138 mmol/L (136-145)
== END | disposition home or self-care (01) ==
LOC: MTLAB 16:18
PROVIDERS: PCP Family Medicine; Referring Provider Nurse Practitioner Family; Visit Provider Nurse Practitioner Family
DX: R42 Dizziness and giddiness (principal)
CPT/HCPCS: 36415; 80048; 85027

== ENCOUNTER → 2022-09-29 | Outpatient (CLI) | payer OTHER, SELFPAY ==
[2022-09-29 18:12] LABS: Anion Gap 6 (5-15); BUN 10 mg/dL (7-18); BUN/Creat Ratio 10.9 RATIO (10-20); Calcium,Total 9.2 mg/dL (8.5-10.1); Chloride 102 mmol/L (98-107); Creatinine, Serum 0.91 mg/dL (0.55-1.02); EST Glomerular Filtration Rate 77 mL/min (>60); Est Glom Filt Rate - Afr Amer 93 mL/min (>60); Glucose 105 mg/dL (74-106); Potassium 3.7 mmol/L (3.5-5.1); Sodium Level 136 mmol/L (136-145)
== END | disposition home or self-care (01) ==
LOC: MTLAB 16:51
PROVIDERS: PCP Family Medicine; Visit Provider Nurse Practitioner Family
DX: N28.9 Disorder of kidney and ureter, unspecified (principal)
CPT/HCPCS: 36415; 80048